=== PATIENT | female | born 1980 | race Caucasian/White ===

== ENCOUNTER 2019-04-29 04:38 | Day surgery (SDC) | payer OTHER ==
[2019-04-23 11:48] VITALS: BMI 23.8
--- NOTE | 2019-04-29 08:10 | HP ---
History & Physical Update - History History: No Change - Physical Physical: No Change - Assessment Assessment: No Change - Plan Plan: No Change (agree eith H&p)
[2019-04-29] MEDS ORDERED: LACTATED RINGERS SOLUTION 1,000 ML IV SCH ×2 (08:15→09:30)
--- NOTE | 2019-04-29 08:36 | HP ---
Admitting History and Physical - Admission Chief Complaint: Here for cervical polyp removal/D&C/hystersocopy for abnormal bleeding. History of Present Illness: Pt is a 38 y/o P2 female with h/o appendectomy, c section and ectopic who had complaints of irregular bleeding for the past 6 weeks. Upon ultrasound examination was found to have a cervical/uterine polyp. Pt desires excision via hysteroscopy with D&C. History Source: Patient, Medical Record Limitations to Obtaining History: No Limitations - Past Medical History Cardiovascular: No: HTN, NM Pulmonary: No: COPD Gastrointestinal: No: GERD Reproductive: Yes: Ectopic ...LMP Comment: Bleeding since November 2018 ...: No ...Para: 2 Psych: Yes: Anxiety, Other (adhd - takes adderall) Endocrine: No: Diabetes Mellitus - Smoking History Smoking history: Never smoked Aproximately how many cigarettes per day: 0 - Alcohol/Substance Use Hx Alcohol Use: No History of Substance Use: reports: None - Social History Usual Living Arrangement: Yes: With Spouse ADL: Independent History of Recent Travel: No Home Medications - Allergies Allergies/Adverse Reactions: Allergies Allergy/AdvReac Type Severity Reaction Status Date / Time Latex, Natural Rubber Allergy Severe Verified 12/09/12 06:40 neomycin [Neomycin] Allergy Severe Verified 12/09/12 06:40 oxycodone Allergy Severe Rash Verified 04/23/19 11:36 morphine Allergy Difficulty Verified 04/23/19 11:36 Breathing Penicillins Allergy Rash Verified 04/29/19 07:39 hyoscyamine AdvReac tachycardia Verified 04/23/19 11:36 antiemetics AdvReac Severe psychosis Uncoded 04/23/19 11:36 - Home Medications Home Medications: Ambulatory Orders Albuterol Sulfate Inhaler - [Ventolin Hfa Inhaler -] 1 - 2 inh PO Q4H PRN Cyclobenzaprine HCl [Flexeril -] 10 mg PO HS PRN 04/23/19 Dextroamphetamine/Amphetamine [Adderall 10 mg Tablet] 10 mg PO DAILY 04/23/19 Diazepam [Valium] 5 mg PO PRN PRN 04/23/19 Esomeprazole Magnesium [Nexium 24Hr] 40 mg PO DAILY 04/23/19 Propranolol HCl 20 mg PO TID PRN 04/23/19 Trazodone HCl 150 mg PO HS PRN 04/23/19 Review of Systems - Review of Systems Constitutional: reports: No Symptoms Eyes: reports: No Symptoms HENT: reports: No Symptoms Neck: reports: No Symptoms Cardiovascular: reports: No Symptoms Respiratory: reports: No Symptoms Gastrointestinal: reports: No Symptoms Genitourinary: reports: No Symptoms Breasts: reports: No Symptoms Reported Musculoskeletal: reports: No Symptoms Integumentary: reports: No Symptoms Neurological: reports: No Symptoms Endocrine: reports: No Symptoms Hematology/Lymphatic: reports: No Symptoms Psychiatric: reports: No Symptoms Physical Examination Vital Signs: Vital Signs Temperature 98 F 04/29/19 07:35 Pulse Rate 74 04/29/19 07:35 Respiratory Rate 18 04/29/19 07:35 Blood Pressure 103/62 04/29/19 07:35 O2 Sat by Pulse Oximetry (%) 100 04/29/19 07:34 Constitutional: Yes: Well Nourished, No Distress, Calm Eyes: Yes: Conjunctiva Clear, EOM Intact HENT: Yes: Atraumatic Neck: Yes: Supple Gastrointestinal: Yes: Soft Neurological: Yes: Alert, Oriented Psychiatric: Yes: Alert, Oriented Problem List - Problems (1) Abnormal uterine bleeding Code(s): N93.9 - ABNORMAL UTERINE AND VAGINAL BLEEDING, UNSPECIFIED (2) Cervical polyp Code(s): N84.1 - POLYP OF CERVIX UTERI Assessment/Plan 38 y/o with AUB here for hysteroscopy D&C procedure discussed at length in office risks including bleeding/infection/pain/uterine perforation/damage to surrounding organs discussed at length, informed consent reconfirmed today questions answered anesthesia aware NPO SCDs
[2019-04-29] MEDS ORDERED: MIDAZOLAM HCL 2 MG/2 ML SINGLE DOSE VIAL ONE ×2 (09:32)
[2019-04-29] MEDS ORDERED: SUCCINYLCHOLINE CHLORIDE 200 MG/10 ML SYRINGE ONE (09:37)
[2019-04-29] MEDS ORDERED: PROPOFOL 20 ML ONE (09:37)
--- NOTE | 2019-04-29 10:16 | OP ---
Operative Note - Note: Operative Date: 04/29/19 ([id number]) Pre-Operative Diagnosis: AUB, cervical polyp Operation: hysteroscopy, D&C, polypectomy Findings: b/l tubal ostea noted small cervical polyp Post-Operative Diagnosis: Same as Pre-op Surgeon: Katelynn Durant Anesthesiologist/[employer]: Danielle Vick MD Anesthesia: General (with LMA) Specimens Removed: endometrial curettings, cervical polyp Estimated Blood Loss (mls): 5 Operative Report Dictated: Yes
[2019-04-29 11:28] VITALS: PULSE 72; TEMP 98
[2019-04-29 12:14] VITALS: BP 100/60
--- NOTE | 2019-04-29 13:00 | OP ---
DATE OF OPERATION: 04/29/2019 PREOPERATIVE DIAGNOSIS: Abnormal uterine bleeding, cervical polyp. POSTOPERATIVE DIAGNOSIS: Abnormal uterine bleeding, cervical polyp. PROCEDURE: Hysteroscopy, dilation and curettage, polypectomy. SURGEON: Katelynn Durant MD ANESTHESIA: Laryngeal mask anesthesia by Dr. Vick. ESTIMATED BLOOD LOSS: 5 mL. COMPLICATIONS: None. DISPOSITION: Stable to PACU. BRIEF HISTORY AND PROCEDURE: The patient is a 38-year-old female who was seen in the office with complaints of abnormal uterine bleeding and noted to have a cervical polyp. The patient was counseled on her options and elected to undergo hysteroscopic resection of the polyp. The patient was admitted to [facility] on April 29, 2019, for the procedure and consents for the procedure which were signed in the office prior were reconfirmed upon admission. The patient was taken back to the operating room, given LM anesthesia by Dr. Vick, placed in the dorsal lithotomy position, prepped and draped in the usual sterile fashion. A hard timeout was performed. A speculum was placed inside the vagina. The anterior lip of the cervix was grasped with a tenaculum. The cervix was dilated to accommodate a diagnostic hysteroscope, which was advanced to the fundus of the uterus. Bilateral tubal ostia were noted. A small anterior cervical polyp was appreciated. There was no abnormal intrauterine anatomy. Sharp curettage in all 4 sandhu of the uterus was completed. Suction D&C was completed to remove all intrauterine contents and detached polyp tissue. One final pass with the hysteroscope revealed adequate D&C and removal of cervical polyp. Due to difficulty with intrauterine pressure, adequate expansion of the uterus after the procedure was not completed. A uterine perforation could not be ruled out. The patient was having minimal bleeding noticed on the cervix after the procedure and was recovering in stable condition in the PACU after the procedure. Close monitoring was completed for signs of abdominal pain or abnormal vital signs. The patient was made aware of the difficulty intrasurgically signs of uterine perforation to alert a physician immediately. KATELYNN DURANT DO /[id number]
--- NOTE | 2019-04-30 16:30 | PATH ---
Surgical Pathology Report Patient Name: APOLONIA SALTER [facility]. Rec. #: [id number] /Age/Gender: 1980 (Age: 38) / F Account: [id number] Location: [facility] SURGICAL Taken: 04/29/2019 Received: 04/29/2019 Reported: 04/30/2019 Physicians: Katelynn Durant M.D. Specimen(s) Received ENDOMETRIAL CURETTINGS AND CERVICAL POLYP Clinical History Cervical polyps Final Diagnosis ENDOMETRIAL CURETTINGS AND CERVICAL POLYP, SUCTION DILATION AND CURETTAGE: POLYPOID FRAGMENTS OF ENDOMETRIUM, ENDOCERVICAL MUCOSA, AND CERVICAL SQUAMOUS EPITHELIUM IN A BACKGROUND OF ABUNDANT MUCUS AND BLOOD. Electronically Signed Anne-Marie Hurtado M.D. Gross Description Received in formalin labeled "endometrial curettings and cervical polyp," is a 3.0 x 2.8 x 0.3 cm aggregate of hickman-brown soft tissue fragments. The formalin is filtered and the specimen is entirely submitted in one cassette. /04/29/2019 saudi/04/29/2019
== END 2019-04-29 12:05 | disposition home or self-care (01) ==
LOC: JASU-SURG 04:38
PROVIDERS: ATTEND Obstetrics & Gynecology
PROC: 0UBC8ZX Excision of Cervix, Via Natural or Artificial Opening Endoscopic, Diagnostic (ICD-10-PCS; principal; 2019-04-29 08:30)
PROC: 0UDB8ZX Extraction of Endometrium, Via Natural or Artificial Opening Endoscopic, Diagnostic (ICD-10-PCS; 2019-04-29 08:30)
DX: N93.9 Abnormal uterine and vaginal bleeding, unspecified (principal); N84.1 Polyp of cervix uteri
CPT/HCPCS: 36415; 84703; 86850; 86900; 86901; 88305-TC; 94760

== ENCOUNTER 2021-06-12 12:50 | Emergency (ER) | payer OTHER ==
[2021-06-12 13:35] VITALS: TEMP 98.9; BMI 24.7
[2021-06-12] MEDS ORDERED: diphenhydrAMINE HCL 50 MG CAPSULE PO ONE (14:38)
[2021-06-12] MEDS ORDERED: LORazepam 2 MG TABLET PO ONE (14:39)
[2021-06-12] MEDS ORDERED: diphenhydrAMINE HCL 50 MG CAPSULE ONE (14:40)
[2021-06-12] MEDS ORDERED: LORazepam 0.5 MG TABLET ONE (14:41)
[2021-06-12] MEDS ORDERED: HYDROmorphone HCL 2 MG TABLET PO ONE ×2 (14:49→16:07)
[2021-06-12] MEDS ORDERED: HYDROmorphone HCL 2 MG TABLET ONE ×2 (15:02→16:13)
[2021-06-12 15:38] VITALS: PULSE 115
[2021-06-12] MEDS ORDERED: LIDOCAINE 5% TOPICAL PATCH TP ONE (16:07)
[2021-06-12] MEDS ORDERED: LIDOCAINE 5% TOPICAL PATCH ONE (16:13)
[2021-06-12] MEDS ORDERED: SODIUM CHLORIDE 0.9% 500 ML INFUS.BAG IV ONE (17:15)
[2021-06-12] MEDS ORDERED: LORazepam 2 MG/ML SDV VIAL IVPUSH STA (18:37)
[2021-06-12] MEDS ORDERED: HYDROmorphone HCL CARPU-JECT 1 MG/1 ML DISP.SYRIN IVPUSH ONE (18:37)
[2021-06-12] MEDS ORDERED: LORazepam 2 MG/ML SDV VIAL ONE (18:40)
[2021-06-12] MEDS ORDERED: HYDROmorphone HCL/PF 1 MG/ML VIAL ONE (18:40)
[2021-06-12] MEDS ORDERED: KETOROLAC TROMETHAMINE 30 MG/1 ML VIAL IVPUSH ONE (19:00)
[2021-06-12] MEDS ORDERED: ACETAMINOPHEN 325 MG TABLET (FP) ONE (19:10)
[2021-06-12] MEDS ORDERED: ACETAMINOPHEN 500 MG TABLET (FP) PO ONE (19:10)
[2021-06-12] MEDS ORDERED: KETOROLAC TROMETHAMINE 30 MG/1 ML VIAL ONE (19:10)
[2021-06-12 19:47] VITALS: BP 126/83
[2021-06-12] MEDS ORDERED: LIDOCAINE PATCH REMOVAL MC SCH (22:00)
== END 2021-06-12 19:45 | disposition home or self-care (01) ==
LOC: FER 12:50
PROC: 3E033GC Introduction of Other Therapeutic Substance into Peripheral Vein, Percutaneous Approach (ICD-10-PCS; principal; 2021-06-12)
DX: R51.9 Headache, unspecified (principal); M54.5 Low back pain; Y04.8XXA Assault by other bodily force, initial encounter
CPT/HCPCS: 70450-TC; 70486-TC; 72125-TC; 72128-TC; 72131-TC; 81025; 93005; 99285-25